=== PATIENT | female | born 1970 ===

== ENCOUNTER 2022-05-25 09:14 | Day surgery (SDC) | payer OTHER | END 2022-05-25 14:40 | disposition home or self-care (01) | LOC: AMB-ENDOS 09:14 | PROVIDERS: ATTEND Colon & Rectal Surgery | DX: D12.8 Benign neoplasm of rectum (principal); K64.8 Other hemorrhoids; I10 Essential (primary) hypertension; Z88.0 Allergy status to penicillin; Z20.822 Contact with and (suspected) exposure to COVID-19 ==